=== PATIENT | male | born 1950 | race Caucasian/White ===

== ENCOUNTER 2016-12-24 13:34 | Emergency (ER) | payer BC, OTHER ==
[~2016-12-24] VITALS: Ht 185.4 cm; Wt 108.0 kg
[~2016-12-24 13:34] MED LIST: ACTOS15 MG PO; AMLODIPINE BESY10 MG PO; ASPIR-LOW81 MG PO; CHLORTHALIDONE25 MG PO; DOXAZOSIN MESYLA4 MG PO; ENALAPRIL MALEA20 MG PO; GLYBURIDE-METF1 EAC1 PO; HYDRALAZINE HC100 MG PO; IMBRUVICA140 MG PO; INSPRA50 MG PO; JANUVIA100 MG PO; LEVOFLOXACIN750 MG PO; LITE COAT ASPI325 M1 PO; METOPROLOL TAR100 MG PO; NIFEDIPINE ER60 MG PO; NIFEDIPINE ER90 MG PO; PRAVASTATIN SOD40 MG PO; PREVACID30 MG PO; VERAPAMIL HCL240 MG PO; ZOFRAN ODT4 MG PO; ZYDELIG100 MG PO; [UNRECOGNIZED DRUG - OTHER] PO
[2016-12-24 15:58] LABS: PLATELET COUNT 102 K/uL (156-360)
[2016-12-24 16:08] LABS: HEMATOCRIT 27.1 % (38.0-50.0); MCH 33.5 PG (29.0-34.0); MCHC 32.1 G/DL (30.0-36.0); MCV 104.2 FL (86-99); MEAN PLAT.VOLUME 10.1 uM^3 (9.0-12.4); RBC DIS.WIDTH-CV 15.9 % (11.8-14.6); RBC DIS.WIDTH-SD 58.7 % (39-53); WHITE BLOOD COUNT 77.2 K/uL (4.1-10.2)
[2016-12-24 16:19] LABS: CHLORIDE 105 mEq/L (99-109); POTASSIUM 3.7 mEq/L (3.7-5.4); SODIUM 138 mEq/L (136-147)
[2016-12-24 16:20] LABS: GLUCOSE 186 mg/dL (70-99)
[2016-12-24 16:22] LABS: ANION GAP 10 MEQ/L (2-14)
[2016-12-24 16:24] LABS: GFR ESTIMATE (CALCULATED) 59 mL/min/
[2016-12-24 16:25] LABS: UREA NITROGEN (BUN) 21 mg/dL (9-23)
[2016-12-24 17:04] LABS: ADD MIUA? YES; BILIRUBIN NEGATIVE; BLOOD NEGATIVE; COLOR YELLOW ((YELLOW)); GLUCOSE (STRIP) 50; KETONES NEGATIVE; LEUKOCYTES MODERATE; NITRITE NEGATIVE; PROTEIN (STRIP) 100; SPECIFIC GRAVITY 1.014 (1.000-1.030); UROBILINOGEN 0.2 MG/DL (0.2-1.0)
[2016-12-24 17:14] LABS: BACTERIA RARE /HPF; EPITHELIAL CELLS NONE SEEN /HPF; HYALINE CASTS 0-5 /LPF; MUCUS TRACE /LPF; RED BLOOD CELLS 0-5 /HPF (0-5); UCUL ADDED? NO; WHITE BLOOD CELLS 20-30 /HPF (0-5)
[2016-12-24] MEDS ORDERED: AUGMENTIN875 MG PO (17:55)
[2016-12-24 18:57] VITALS: BP 166/76
== END 2016-12-24 18:58 | disposition home or self-care (01) ==
LOC: EME 13:34
PROVIDERS: Physician Assistant Medical
DX: N39.0 Urinary tract infection, site not specified (principal); L03.113 Cellulitis of right upper limb; R50.9 Fever, unspecified; C95.90 Leukemia, unspecified not having achieved remission; E11.9 Type 2 diabetes mellitus without complications; E78.5 Hyperlipidemia, unspecified; I10 Essential (primary) hypertension; K21.9 Gastro-esophageal reflux disease without esophagitis; Z92.21 Personal history of antineoplastic chemotherapy; Z87.442 Personal history of urinary calculi; Z87.891 Personal history of nicotine dependence
CPT/HCPCS: 71020; 80048; 81003; 83605; 85027; 87040; 87077; 87086; 87147; 87186; 93971; 99281; 99285

== ENCOUNTER 2017-03-15 09:53 | Emergency (ER) | payer BC, OTHER ==
[~2017-03-15] VITALS: Ht 185.4 cm; Wt 96.1 kg
[~2017-03-15 09:53] MED LIST changes: +AUGMENTIN875 MG PO
[2017-03-15 11:32] LABS: MEAN PLAT.VOLUME 11.9 uM^3 (9.0-12.4); PLATELET COUNT 195 K/uL (156-360)
[2017-03-15 11:34] LABS: HEMATOCRIT 24.4 % (38.0-50.0); MCH 28.4 PG (29.0-34.0); MCHC 30.7 G/DL (30.0-36.0); RBC DIS.WIDTH-CV 19.3 % (11.8-14.6); RBC DIS.WIDTH-SD 64.4 % (39-53); RED BLOOD COUNT 2.64 M/uL (4.00-5.50)
[2017-03-15 11:38] LABS: MCV 92.4 FL (86-99); WHITE BLOOD COUNT 34.6 K/uL (4.1-10.2)
[2017-03-15 11:41] LABS: CHLORIDE 100 mEq/L (99-109); POTASSIUM 4.2 mEq/L (3.7-5.4); SODIUM 135 mEq/L (136-147)
[2017-03-15 11:45] LABS: ANION GAP 13 MEQ/L (2-14); TOTAL BILIRUBIN 0.5 mg/dL (0.0-1.0)
[2017-03-15 11:47] LABS: ALKALINE PHOSPHATASE 108 IU/L (3-129); GFR ESTIMATE (CALCULATED) 50 mL/min/
[2017-03-15 11:48] LABS: UREA NITROGEN (BUN) 22 mg/dL (9-23)
[2017-03-15 11:49] LABS: ADD MIUA? YES; BILIRUBIN NEGATIVE; BLOOD SMALL; COLOR YELLOW ((YELLOW)); GLUCOSE (STRIP) >=500; KETONES 5; LEUKOCYTES NEGATIVE; NITRITE NEGATIVE; PROTEIN (STRIP) >=500; SPECIFIC GRAVITY 1.021 (1.000-1.030); UROBILINOGEN 0.2 MG/DL (0.2-1.0)
[2017-03-15 11:49] LABS: GLUCOSE 405 mg/dL (70-99)
[2017-03-15 11:57] LABS: BACTERIA NONE SEEN /HPF; EPITHELIAL CELLS NONE SEEN /HPF; MUCUS NONE SEEN /LPF; RED BLOOD CELLS 0-5 /HPF (0-5); UCUL ADDED? NO; WHITE BLOOD CELLS 0-5 /HPF (0-5)
[2017-03-15 14:06] LABS: ABS NEUTROPHIL COUNT 1.1; EOSINOPHIL ABS CT 0; INSTRUMENT ABS NEUTROPHIL CT 1.6 K/uL; SEG.NEUTROPHILS 3.3 % (46.0-76.0)
[2017-03-15] MEDS ORDERED: ZOFRAN ODT4 MG PO (15:41)
[2017-03-15 17:57] VITALS: BP 164/88
== END 2017-03-15 17:58 | disposition home or self-care (01) ==
LOC: EME 09:53
PROVIDERS: Physician Assistant
DX: D64.9 Anemia, unspecified (principal); M79.1 Myalgia; C91.10 Chronic lymphocytic leukemia of B-cell type not having achieved remission; R05 Cough; R11.2 Nausea with vomiting, unspecified; R79.1 Abnormal coagulation profile; I10 Essential (primary) hypertension; E78.5 Hyperlipidemia, unspecified; E11.9 Type 2 diabetes mellitus without complications; Z79.84 Long term (current) use of oral hypoglycemic drugs; Z79.82 Long term (current) use of aspirin; Z87.442 Personal history of urinary calculi; Z95.5 Presence of coronary angioplasty implant and graft; Z87.891 Personal history of nicotine dependence
CPT/HCPCS: 71020; 71275; 80048; 80053; 81003; 85025; 85027; 85379; 86900; 86901; 86920; 94640; 99281; 99284; J7030

== ENCOUNTER 2017-03-20 14:54 | Inpatient (IN) | payer OTHER, BC ==
[~2017-03-20] VITALS: Ht 185.4 cm; Wt 94.0 kg
[2017-03-20] MEDS ORDERED: BYSTOLIC20 MG PO (16:27)
[2017-03-20] MEDS ORDERED: BYSTOLIC10 MG PO (16:27)
[2017-03-20] MEDS ORDERED: APRESOLINE100 MG PO (16:30)
[2017-03-20] MEDS ORDERED: CATAPRES0.2 MG PO (16:34)
[2017-03-20] MEDS ORDERED: GLUCOPHAGE XR,500 MG PO ×2 (16:38→16:40)
[2017-03-20] MEDS ORDERED: DIABETA5 MG PO (16:42)
[2017-03-20 16:47] VITALS: BP 149/68
[2017-03-20 17:42] LABS: HEMATOCRIT 24.6 % (38.0-50.0); MCH 29.1 PG (29.0-34.0); MCHC 32.9 G/DL (30.0-36.0); MCV 88.5 FL (86-99); RBC DIS.WIDTH-CV 19.9 % (11.8-14.6); RBC DIS.WIDTH-SD 63.2 % (39-53); RED BLOOD COUNT 2.78 M/uL (4.00-5.50); WHITE BLOOD COUNT 24.3 K/uL (4.1-10.2)
[2017-03-20 18:01] LABS: ANION GAP 11 MEQ/L (2-14); CHLORIDE 97 MEQ/L (99-109); DIRECT BILIRUBIN 0.1 mg/dL (0.0-0.3); POTASSIUM 3.2 MEQ/L (3.7-5.4); SAMPLE HEMOLYSIS CHECK 0; SAMPLE ICTERIC CHECK 0; SAMPLE LIPEMIA CHECK 0; SODIUM 132 MEQ/L (136-147); TOTAL BILIRUBIN 0.4 MG/DL (0.0-1.0)
[2017-03-20 18:07] LABS: ALKALINE PHOSPHATASE 133 IU/L (3-129); GFR ESTIMATE (CALCULATED) 46 mL/min/; GLUCOSE 366 mg/dL (70-99); UREA NITROGEN (BUN) 46 mg/dL (9-23)
[2017-03-20 18:26] LABS: ABS NEUTROPHIL COUNT 0.3; ANISOCYTOSIS 1+; BAND NEUTROPHILS 0.9 % (0-8.0); BURR CELLS 1+; EOSINOPHIL ABS CT 0.2; EOSINOPHILS 0.9 % (0-5.0); HYPOCHROMASIA 1+; INSTRUMENT ABS NEUTROPHIL CT 0.6 K/uL; MACROCYTES 1+; PLAT.SUFFICIENCY DECREASED; PLATELET CLUMPS PRESENT - PLATELET COUNTS APPEARS DECREASED; POIKILOCYTOSIS 2+; ROULEAUX 1+; SEG.NEUTROPHILS 0.4 % (46.0-76.0); SMUDGE CELLS 15.7
[2017-03-20 18:38] LABS: PLATELET COUNT UNABLE TO REPORT K/uL (156-360)
[2017-03-20 19:06] LABS: Estimated Average Glucose 200 mg/dL (70-123); HEMOGLOBIN A1c (GLYCOHEMOGLOB) 8.6 % HGB (Below 5.7)
[2017-03-20 20:05] VITALS: BP 153/67
[2017-03-20 21:45] LABS: POINT-OF-CARE METER ID UU13113725
[2017-03-20 23:54] VITALS: BP 190/80
[2017-03-21] VITALS (11 sets, daily range): BP systolic 14–194; BP diastolic 65–83
[2017-03-21 06:00] LABS: HEMATOCRIT 24.1 % (38.0-50.0); MCH 28.6 PG (29.0-34.0); MCHC 32.4 G/DL (30.0-36.0); MCV 88.3 FL (86-99); RBC DIS.WIDTH-CV 19.9 % (11.8-14.6); RBC DIS.WIDTH-SD 63.3 % (39-53); RED BLOOD COUNT 2.73 M/uL (4.00-5.50); WHITE BLOOD COUNT 23.4 K/uL (4.1-10.2)
[2017-03-21 06:03] LABS: PLATELET COUNT 122 K/uL (156-360)
[2017-03-21 06:32] LABS: ANION GAP 9 MEQ/L (2-14); CHLORIDE 100 MEQ/L (99-109); GFR ESTIMATE (CALCULATED) 54 mL/min/; GLUCOSE 232 mg/dL (70-99); POTASSIUM 3.4 MEQ/L (3.7-5.4); SAMPLE HEMOLYSIS CHECK 0; SAMPLE ICTERIC CHECK 0; SAMPLE LIPEMIA CHECK 0; SODIUM 135 MEQ/L (136-147); UREA NITROGEN (BUN) 39 mg/dL (9-23)
[2017-03-21 10:06] LABS: POINT-OF-CARE METER ID UU13113725
[2017-03-21 10:23] LABS: INTERNAL CONTROL VALID? YES
[2017-03-21 10:36] LABS: C DIFF TOXIN NEGATIVE (NEGATIVE)
[2017-03-21 10:37] LABS: PROBE CHECK PASS; SPECIMEN PROCESSING CONTROL PASS
[2017-03-21 11:02] LABS: POINT-OF-CARE METER ID UU13113725
[2017-03-21 11:46] LABS: POINT-OF-CARE METER ID UU13113725
[2017-03-21 13:56] LABS: TROP-I INTERPRETATION NEGATIVE; TROPONIN-I < 0.01 ng/mL (0.0-0.30)
[2017-03-21 18:14] LABS: INTERNAL CONTROL VALID? YES
[2017-03-22 04:13] VITALS: BP 148/69
[2017-03-22 06:43] LABS: HEMATOCRIT 26.5 % (38.0-50.0); MCH 26.5 PG (29.0-34.0); MCHC 31.3 G/DL (30.0-36.0); MCV 84.7 FL (86-99); MEAN PLAT.VOLUME 10.4 uM^3 (9.0-12.4); PLATELET COUNT 124 K/uL (156-360); RBC DIS.WIDTH-CV 22.7 % (11.8-14.6); RBC DIS.WIDTH-SD 69.5 % (39-53); RED BLOOD COUNT 3.13 M/uL (4.00-5.50); WHITE BLOOD COUNT 26.7 K/uL (4.1-10.2)
[2017-03-22 06:48] LABS: ANION GAP 9 MEQ/L (2-14); CHLORIDE 104 MEQ/L (99-109); GFR ESTIMATE (CALCULATED) > 59 mL/min/; POTASSIUM 2.8 MEQ/L (3.7-5.4); SAMPLE HEMOLYSIS CHECK 0; SAMPLE ICTERIC CHECK 0; SAMPLE LIPEMIA CHECK 0; SODIUM 139 MEQ/L (136-147); UREA NITROGEN (BUN) 26 mg/dL (9-23)
[2017-03-22 06:49] LABS: GLUCOSE 81 mg/dL (70-99)
[2017-03-22 08:55] VITALS: BP 157/69
[2017-03-22 09:00] LABS: MAGNESIUM 1.2 mg/dl (1.3-2.7)
[2017-03-22 11:59] VITALS: BP 156/69
[2017-03-22 16:21] VITALS: BP 187/85
[2017-03-22 21:43] VITALS: BP 170/76
[2017-03-22 23:51] VITALS: BP 169/83
[2017-03-23 03:17] VITALS: BP 150/70
[2017-03-23 06:21] LABS: HEMATOCRIT 27.2 % (38.0-50.0); MCH 26.4 PG (29.0-34.0); MCHC 31.3 G/DL (30.0-36.0); MCV 84.5 FL (86-99); MEAN PLAT.VOLUME 10.3 uM^3 (9.0-12.4); NRBC (%) 0.1 /100 WBC (0-0); PLATELET COUNT 114 K/uL (156-360); RBC DIS.WIDTH-CV 22.9 % (11.8-14.6); RBC DIS.WIDTH-SD 70.6 % (39-53); RED BLOOD COUNT 3.22 M/uL (4.00-5.50); WHITE BLOOD COUNT 25.6 K/uL (4.1-10.2)
[2017-03-23 06:41] LABS: ANION GAP 7 MEQ/L (2-14); CHLORIDE 103 MEQ/L (99-109); GFR ESTIMATE (CALCULATED) > 59 mL/min/; MAGNESIUM 1.2 mg/dl (1.3-2.7); SAMPLE HEMOLYSIS CHECK 0; SAMPLE ICTERIC CHECK 0; SAMPLE LIPEMIA CHECK 0; SODIUM 138 MEQ/L (136-147); UREA NITROGEN (BUN) 18 mg/dL (9-23)
[2017-03-23 06:46] LABS: GLUCOSE 109 mg/dL (70-99); POTASSIUM 3.5 MEQ/L (3.7-5.4)
[2017-03-23 08:18] VITALS: BP 197/82
[2017-03-23 16:06] LABS: HEMATOCRIT 32.8 % (38.0-50.0); MCV 85.2 FL (86-99)
[2017-03-23 16:24] VITALS: BP 198/87
[2017-03-23 18:04] VITALS: BP 158/80
[2017-03-23 23:06] VITALS: BP 137/67
[2017-03-24 06:50] VITALS: BP 170/78
[2017-03-24 08:53] LABS: HEMATOCRIT 31.9 % (38.0-50.0); MCH 26.5 PG (29.0-34.0); MCHC 31.3 G/DL (30.0-36.0); MCV 84.6 FL (86-99); NRBC (%) 0.1 /100 WBC (0-0); RBC DIS.WIDTH-CV 23.5 % (11.8-14.6); RBC DIS.WIDTH-SD 70.9 % (39-53); RED BLOOD COUNT 3.77 M/uL (4.00-5.50)
[2017-03-24 09:14] LABS: PLATELET COUNT 164 K/uL (156-360); WHITE BLOOD COUNT 36.6 K/uL (4.1-10.2)
[2017-03-24 09:28] LABS: ANION GAP 12 MEQ/L (2-14); CHLORIDE 98 MEQ/L (99-109); GFR ESTIMATE (CALCULATED) > 59 mL/min/; GLUCOSE 355 mg/dL (70-99); POTASSIUM 3.9 MEQ/L (3.7-5.4); SAMPLE HEMOLYSIS CHECK 0; SAMPLE ICTERIC CHECK 0; SAMPLE LIPEMIA CHECK 0; SODIUM 136 MEQ/L (136-147); UREA NITROGEN (BUN) 15 mg/dL (9-23)
[2017-03-24 13:07] LABS: POINT-OF-CARE METER ID UU13113725
[2017-03-24 16:10] VITALS: BP 139/66
[2017-03-24 21:03] LABS: POINT-OF-CARE METER ID UU13113725
[2017-03-24 23:20] VITALS: BP 168/79
[2017-03-25 05:23] LABS: ADD MIUA? YES; BILIRUBIN NEGATIVE; BLOOD NEGATIVE; COLOR YELLOW ((YELLOW)); GLUCOSE (STRIP) >=500; KETONES NEGATIVE; LEUKOCYTES SMALL; NITRITE NEGATIVE; PROTEIN (STRIP) 100; SPECIFIC GRAVITY 1.012 (1.000-1.030); UROBILINOGEN 0.2 MG/DL (0.2-1.0)
[2017-03-25 05:36] LABS: BACTERIA NONE SEEN /HPF; EPITHELIAL CELLS NONE SEEN /HPF; MUCUS TRACE /LPF; RED BLOOD CELLS 0-5 /HPF (0-5); UCUL ADDED? YES; WHITE BLOOD CELLS 40-50 /HPF (0-5)
[2017-03-25 06:05] LABS: POINT-OF-CARE METER ID UU13113725
[2017-03-25 06:50] VITALS: BP 145/67
[2017-03-25 06:59] LABS: ANION GAP 10 MEQ/L (2-14); CHLORIDE 101 MEQ/L (99-109); GFR ESTIMATE (CALCULATED) > 59 mL/min/; HEMATOCRIT 27.6 % (38.0-50.0); MAGNESIUM 1.1 mg/dl (1.3-2.7); MCH 27.1 PG (29.0-34.0); MCHC 32.2 G/DL (30.0-36.0); MCV 84.1 FL (86-99); NRBC (%) 0.1 /100 WBC (0-0); PLAT.SUFFICIENCY DECREASED; POTASSIUM 3.2 MEQ/L (3.7-5.4); RBC DIS.WIDTH-CV 23.1 % (11.8-14.6); RBC DIS.WIDTH-SD 69.9 % (39-53); RED BLOOD COUNT 3.28 M/uL (4.00-5.50); SAMPLE HEMOLYSIS CHECK 0; SAMPLE ICTERIC CHECK 0; SAMPLE LIPEMIA CHECK 0; SODIUM 138 MEQ/L (136-147); UREA NITROGEN (BUN) 15 mg/dL (9-23)
[2017-03-25 07:01] LABS: GLUCOSE 80 mg/dL (70-99)
[2017-03-25 07:13] LABS: WHITE BLOOD COUNT 33.3 K/uL (4.1-10.2)
[2017-03-25 11:25] LABS: POINT-OF-CARE METER ID UU13113725
[2017-03-25 11:52] VITALS: BP 158/72
[2017-03-25 12:59] LABS: PLATELET COUNT 134 K/uL (156-360)
[2017-03-25 16:23] VITALS: BP 135/74
[2017-03-25 16:23] LABS: POINT-OF-CARE METER ID UU13113725
[2017-03-25 22:43] VITALS: BP 110/64
[2017-03-25 23:51] VITALS: BP 151/66
[2017-03-26 00:20] VITALS: BP 117/70; BP 142/65
[2017-03-26 05:42] VITALS: BP 148/66
[2017-03-26 06:50] LABS: ANION GAP 6 MEQ/L (2-14); CHLORIDE 102 MEQ/L (99-109); GFR ESTIMATE (CALCULATED) > 59 mL/min/; POTASSIUM 3.5 MEQ/L (3.7-5.4); SAMPLE HEMOLYSIS CHECK 0; SAMPLE ICTERIC CHECK 0; SAMPLE LIPEMIA CHECK 0; SODIUM 136 MEQ/L (136-147); UREA NITROGEN (BUN) 12 mg/dL (9-23)
[2017-03-26 06:51] LABS: GLUCOSE 164 mg/dL (70-99); MAGNESIUM 1.6 mg/dl (1.3-2.7)
[2017-03-26 07:13] LABS: HEMATOCRIT 25.2 % (38.0-50.0); MCH 27.1 PG (29.0-34.0); MCHC 31.7 G/DL (30.0-36.0); MCV 85.4 FL (86-99); NRBC (%) 0.1 /100 WBC (0-0); RBC DIS.WIDTH-CV 23.2 % (11.8-14.6); RBC DIS.WIDTH-SD 71.5 % (39-53); RED BLOOD COUNT 2.95 M/uL (4.00-5.50); WHITE BLOOD COUNT 27.9 K/uL (4.1-10.2)
[2017-03-26 07:15] LABS: PLAT.SUFFICIENCY DECREASED; PLATELET COUNT 120 K/uL (156-360)
[2017-03-26 07:32] VITALS: BP 159/74
[2017-03-26] MEDS ORDERED: LEVOFLOXACIN750 MG PO (11:09)
[2017-03-26] MEDS ORDERED: AMLODIPINE BESY10 MG PO (11:09)
[2017-03-26] MEDS ORDERED: ACIDOPHILUS LA1 EACH PO (11:10)
[2017-03-26] MEDS ORDERED: METOCLOPRAMIDE H5 MG PO (11:10)
[2017-03-26] MEDS ORDERED: SANTYL30 GM TP (12:24)
== END 2017-03-26 13:56 | disposition home or self-care (01) | DRG 391 ==
LOC: 5EAST 14:54 → ENRESERV 14:59 → CANRESERV 14:59 → 5EAST 16:11 → ENPENDDIS 03-26 → 5EAST 03-26 13:56
PROVIDERS: Hospitalist; Internal Medicine; Physician Assistant
PROC: 30233N1 Transfusion of Nonautologous Red Blood Cells into Peripheral Vein, Percutaneous Approach (ICD-10-PCS; principal; 2017-03-21)
DX: R11.2 Nausea with vomiting, unspecified (principal); N17.9 Acute kidney failure, unspecified; L89.151 Pressure ulcer of sacral region, stage 1; L89.311 Pressure ulcer of right buttock, stage 1; J18.9 Pneumonia, unspecified organism; C91.10 Chronic lymphocytic leukemia of B-cell type not having achieved remission; D69.6 Thrombocytopenia, unspecified; E11.65 Type 2 diabetes mellitus with hyperglycemia; R19.7 Diarrhea, unspecified; E86.0 Dehydration; D72.828 Other elevated white blood cell count; D64.9 Anemia, unspecified; E87.1 Hypo-osmolality and hyponatremia; E87.6 Hypokalemia; E83.42 Hypomagnesemia; R63.0 Anorexia; R50.9 Fever, unspecified; I10 Essential (primary) hypertension; E78.5 Hyperlipidemia, unspecified; Z95.5 Presence of coronary angioplasty implant and graft; Z86.14 Personal history of Methicillin resistant Staphylococcus aureus infection; Z87.442 Personal history of urinary calculi; Z86.010 Personal history of colon polyps; Z80.1 Family history of malignant neoplasm of trachea, bronchus and lung; Z80.0 Family history of malignant neoplasm of digestive organs; Z79.4 Long term (current) use of insulin; Z79.84 Long term (current) use of oral hypoglycemic drugs; Z92.21 Personal history of antineoplastic chemotherapy; R74.8 Abnormal levels of other serum enzymes; I25.10 Atherosclerotic heart disease of native coronary artery without angina pectoris; T50.995A Adverse effect of other drugs, medicaments and biological substances, initial encounter; K57.30 Diverticulosis of large intestine without perforation or abscess without bleeding
CPT/HCPCS: 36415; 71020; 74177; 80048; 80048 91; 80076; 81003; 82272; 82565; 82948; 83036; 83605; 83615; 83630; 83735; 84484; 84520; 85014; 85018; 85025; 85025 91; 85027; 86900; 86901; 86920; 87086; 87177; 87493; 87506; 93005; 96361; 96372 XU; J0360; J1644; J1815; J2405; J3475; J3480; J7030; P9016